=== PATIENT | male | born 1960 | race Caucasian/White ===

== ENCOUNTER → 2016-06-06 | Outpatient (CLI) | payer OTHER ==
[2016-06-06 15:32] LABS: BASOPHILS % (AUTO) 1 % (0-2); EOSINOPHILS # (AUTO) 0.2 10^3uL; EOSINOPHILS % (AUTO) 4 % (0-4); LYMPHOCYTES # (AUTO) 0.9 X10^3; MEAN CORPUSCULAR HEMOGLOBIN 29.5 PG (26.0-34.0); MEAN CORPUSCULAR HGB CONC 34.4 g/dL (31.0-37.0); MEAN CORPUSCULAR VOLUME 86 FL (80-100); MONOCYTES # (AUTO) 0.5 X10^3; MONOCYTES % (AUTO) 12 % (3-11); NEUTROPHILS # (AUTO) 2.8 X10^3; NEUTROPHILS % (AUTO) 64 % (51-67); PLATELET COUNT 148 10^3uL (150-450); WHITE BLOOD COUNT 4.35 10^3uL (4.0-11.0)
[2016-06-06 16:00] LABS: ALBUMIN 3.8 g/dL (3.4-5.0); ANION GAP 15.6 MEQ/L (3-15); CALCULATED IONIZED CALCIUM 4.2 mg/dL (3.8-4.6); TOTAL PROTEIN 6.7 g/dL (6.4-8.5)
== END ==
LOC: LAB 15:14
PROVIDERS: ATTEND Internal Medicine Hematology & Oncology
DX: C20 Malignant neoplasm of rectum (principal)
CPT/HCPCS: 36415; 80053; 82378; 85025

== ENCOUNTER → 2016-08-22 | Outpatient (CLI) | payer OTHER ==
[~2016-08-22] MED LIST: ATOR10TA PO; CLON0.5T3 PO; LSNP10T PO
[2016-08-22 14:55] LABS: BASOPHILS % (AUTO) 1 % (0-2); EOSINOPHILS # (AUTO) 0.1 10^3uL; EOSINOPHILS % (AUTO) 3 % (0-4); LYMPHOCYTES # (AUTO) 1.2 X10^3; MEAN CORPUSCULAR HGB CONC 33.9 g/dL (31.0-37.0); MEAN CORPUSCULAR VOLUME 86 FL (80-100); MEAN PLATELET VOLUME 9.9 FL (6.0-9.5); MONOCYTES # (AUTO) 0.5 X10^3; MONOCYTES % (AUTO) 10 % (3-11); NEUTROPHILS # (AUTO) 2.8 X10^3; NEUTROPHILS % (AUTO) 61 % (51-67); PLATELET COUNT 168 10^3uL (150-450); WHITE BLOOD COUNT 4.58 10^3uL (4.0-11.0)
[2016-08-22 15:08] LABS: ALBUMIN 4.4 g/dL (3.4-5.0); ANION GAP 14.9 MEQ/L (3-15); CALCULATED IONIZED CALCIUM 3.8 mg/dL (3.8-4.6); TOTAL PROTEIN 7.9 g/dL (6.4-8.5)
== END ==
LOC: LAB 14:44
PROVIDERS: ATTEND Internal Medicine Hematology & Oncology
DX: C20 Malignant neoplasm of rectum (principal)
CPT/HCPCS: 36415; 80053; 82378; 85025

== ENCOUNTER → 2016-08-25 | Outpatient (CLI) | payer OTHER ==
--- NOTE | 2016-08-25 13:42 | Diagnostic Imaging Report ---
PROCEDURE: CT chest pelvis with and abdomen with and without contrast. TECHNIQUE: Multiple contiguous axial images were obtained through the chest, abdomen and pelvis after uneventful bolus administration of intravenous contrast. Precontrast acquisitions were acquired through the abdomen. INDICATION: Followup rectal carcinoma. COMPARISON: 03/10/2016. FINDINGS: Thorax: Axillary, supraclavicular, mediastinal and hilar lymph nodes are within normal limits. Great vessels are negative. No pleural or pericardial effusion is identified. Calcified granuloma in noted in the left lung. No solid noncalcified pulmonary nodules are identified. No osteolytic or osteoblastic lesion is identified. IMPRESSION: 1. Thorax is negative for metastasis. No change from prior. Abdomen and pelvis: The liver is negative. Gallbladder is negative. Spleen and adrenals are negative. Pancreas is negative. Kidneys are negative for hydronephrosis or mass. Tiny nonobstructing left renal stone is present, Aorta shows some slight ectasia distally with no aneurysm. There are no pathologically enlarged lymph nodes in the abdomen or retroperitoneum. The pelvic lymph nodes are negative. No inguinal lymphadenopathy is identified. No focal rectal mass is seen. Previously present wall thickening of the distal sigmoid and rectum is difficult to compare with today's exam because of differences in luminal distention between the two studies. The soft tissue thickening appears less prominent. Mild perirectal fat stranding is present. The appearance is similar to prior. The prostate and seminal vesicles are negative. No urinary bladder lesion is identified. IMPRESSION: 1. Wall thickening of the distal sigmoid and rectum appear less prominent Stable CT of the abdomen and pelvis. Dictated by: Dictated on workstation # [id number]
== END ==
LOC: RAD 08:21
PROVIDERS: ATTEND Internal Medicine Hematology & Oncology
DX: C20 Malignant neoplasm of rectum (principal)
CPT/HCPCS: 71260; 74178; Q9967